=== PATIENT | female | born 1955 | race Caucasian/White ===

== ENCOUNTER → 2016-11-09 | Outpatient (CLI) | payer OTHER ==
--- NOTE | 2016-11-09 12:50 | DIAGNOSTIC IMAGING REPORT ---
LEFT HIP INJECTION UNDER FLUOROSCOPIC GUIDANCE CLINICAL HISTORY: Steroid injection. Degenerative joint disease. PROCEDURE: The risks, benefits, and alternatives to the procedure were discussed with the patient. Written informed consent was obtained. The patient was placed supine on the fluoroscopy table, and a left hip injection was performed under fluoroscopic guidance. The area was prepped and draped in the usual sterile fashion. The skin and soft tissues anesthetized with local 1% lidocaine. The left hip joint was accessed utilizing a 22-gauge needle, and intra-articular positioning was confirmed by injecting a small volume of Optiray 300. The prescribed dosage of 2 cc of betamethasone and 5 cc of 0.5% bupivacaine was then injected into the joint space. The procedure was well tolerated and without immediate complication. The patient left the department in satisfactory condition. FLUOROSCOPY TIME: 7 seconds IMPRESSION: Successful steroid injection of the left hip under fluoroscopic guidance. Electronically signed by: Michael Crowder M.D. 11/09/2016 12:49 PM Dictated Date/Time: 11/09/2016 12:47 PM
== END | disposition home or self-care (01) ==
LOC: C.RADBC 10:51
PROVIDERS: ATTEND Orthopaedic Surgery
DX: M16.12 Unilateral primary osteoarthritis, left hip (principal)

== ENCOUNTER → 2017-03-16 | Outpatient (CLI) | payer OTHER ==
--- NOTE | 2017-03-16 14:55 | DIAGNOSTIC IMAGING REPORT ---
LEFT HIP INJECTION UNDER FLUOROSCOPIC GUIDANCE CLINICAL HISTORY: Steroid injection. Degenerative joint disease. PROCEDURE: The risks, benefits, and alternatives to the procedure were discussed with the patient. Written informed consent was obtained. The patient was placed supine on the fluoroscopy table, and a left hip injection was performed under fluoroscopic guidance. The area was prepped and draped in the usual sterile fashion. The skin and soft tissues anesthetized with local 1% lidocaine. The left hip joint was accessed utilizing a 22-gauge needle, and intra-articular positioning was confirmed by injecting a small volume of Optiray 300. The prescribed dosage of 2 cc of betamethasone and 5 cc of 0.5% bupivacaine was then injected into the joint space. The procedure was well tolerated and without immediate complication. The patient left the department in satisfactory condition. FLUOROSCOPY TIME: 6 seconds IMPRESSION: Successful steroid injection of the left hip under fluoroscopic guidance. Electronically signed by: Michael Crowder M.D. 03/16/2017 2:53 PM Dictated Date/Time: 03/16/2017 2:53 PM
== END | disposition home or self-care (01) ==
LOC: C.RADBC 14:02
PROVIDERS: ATTEND Orthopaedic Surgery
DX: M16.12 Unilateral primary osteoarthritis, left hip (principal)

== ENCOUNTER 2018-11-01 06:30 | Inpatient (IN) ==
--- NOTE | 2018-10-08 15:09 | PAT Medication Instructions ---
Medication Instructions Date of Service October 08, 2018 Home Medications lisinopril 10 mg PO QPM simvastatin 20 mg PO PM omeprazole 20 mg PO DAILY PRN Take morning of surgery With a small sip of water, OTHERWISE NOTHING TO EAT OR DRINK AFTER MIDNIGHT: omeprazole 20 mg PO DAILY PRN (if needed) Take evening before surgery lisinopril 10 mg PO QPM simvastatin 20 mg PO PM Other Notes If you have any questions please call us at [phone] or [phone] or [phone] or [phone]
--- NOTE | 2018-10-09 14:22 | Anesthesiology Consultation ---
Date of Service October 09, 2018 Assessment & Plan (1) Encounter for pre-operative examination: - Neosporin Plus reaction: localized rash but patient states she has had lidocaine alone multiple times without issue. Discussed SAB vs. GA. Chart Review Chart Review: Acceptable Risk for Surgery (pending preop testing (labs, CXR) being done at [facility]) and Patient seen in Pre Admission Testing Teaching & Discussion Pre-Anesthesia Teaching/Discussion Notes: Instructed NPO after midnight before surgery,except medications with 15 cc of water. Medication instructions provided according to the PAT guidelines. History Surgery Operation Date: 11/01/18 08:50 Proposed Procedures p Left Total Knee Arthroplasty - Franky Moreno, Height/Weight Height: 5 ft 4 in Weight: 71.7 kg Allergies Allergy/AdvReac Type Severity Reaction Status Date / Time ciprofloxacin [From Cipro] Allergy Severe RED MAN'S Verified 10/03/18 10:15 SYNDROME bacitracin Allergy Mild Rash Verified 10/03/18 10:15 [From Neosporin Plus] cefaclor [From Ceclor] Allergy Mild Hives Verified 10/03/18 10:15 lidocaine Allergy Mild Rash- *see Verified 10/09/18 14:29 [From Neosporin Plus] comments* neomycin Allergy Mild Rash Verified 10/03/18 10:15 [From Neosporin Plus] polymyxin B Allergy Mild Rash Verified 10/03/18 10:15 [From Neosporin Plus] pramoxine Allergy Mild Rash Verified 10/03/18 10:15 [From Neosporin Plus] Medications Home Medications Medication Instructions Recorded Confirmed Last Taken lisinopril 10 mg PO QPM 11/12/17 10/03/18 11/21/17 simvastatin 20 mg PO PM 11/12/17 10/03/18 11/21/17 omeprazole 20 mg PO DAILY PRN 10/03/18 10/03/18 Unknown Past Medical History Medical History Hyperlipidemia Hypertension Osteoarthritis Exercise / Class Metabolic Activity II 4-5 Yardwork/Stairs/Walk up hill Past Surgical History Surgical History Fusion of spine C3-7 History of section X 2 History of cholecystectomy History of colonoscopy History of hysterectomy History of nasal septoplasty History of tooth extraction Hx of left cataract extraction Hx of right cataract extraction Hx of rotator cuff surgery LEFT Past Anesthesia History No Hx of Anesthesia Complications and No Family Hx of Anesthesia Complications History of PONV No Hx of PONV and Hx of Motion Sickness Social History Smoking Status: Never smoker Do You Dip or Chew Tobacco: No Hx Alcohol Use: Yes Alcohol type: wine alcohol intake frequency: a few times a month Hx Substance Use: No substance use type: does not use Review of Systems Patient denies chest pain, shortness of breath, dyspnea on exertion, cough, wheezing, palpitations. Physical Exam Vital Signs VITALS BP 138/73 P 69 TEMP 98.2 SP02 98%RA RESP 16 PHYSICAL Full neck and c-spine range of motion. Full TMJ range of motion. TMD 4 finger breaths Mallampati Score 2 Dentition: intact, several crowns/implants "all over." Lungs: clear throughout to auscultation Cardiac: regular rate and rhythm, no murmurs noted Spine: normal Carotid arteries: negative bruit Extremities: no edema Testing Laboratory Results Blood Type O Positive 10/09/18 14:30 Antibody Screen NEGATIVE 10/09/18 14:30 Electrocardiogram Date: 11/06/17 Findings: + NSR @ (17)
--- NOTE | 2018-11-01 06:28 | History & Physical Report ---
Date of Service November 01, 2018 Assessment & Plan (1) Osteoarthritis of left knee: We will proceed with a left total knee arthroplasty. Postoperatively she will be placed on aspirin for DVT prophylaxis. She will be kept overnight in the hospital for postoperative medical management. She plans to use an [facility] outpatient physical therapy upon discharge. Present on Admission?: Yes History of Present Illness Primary Care Provider: Kevin Ortega MD Yaquelin is a pleasant 63-year-old female who is been complaining of chronic increasing left knee pain. X-rays and clinical examination have been diagnostic for primary osteoarthritis of the left knee. After failing conservative treatment, she has elected to proceed with a left total knee arthroplasty. Allergies Allergy/AdvReac Type Severity Reaction Status Date / Time ciprofloxacin [From Cipro] Allergy Severe RED MAN'S Verified 10/03/18 10:15 SYNDROME bacitracin Allergy Mild Rash Verified 10/03/18 10:15 [From Neosporin Plus] cefaclor [From Ceclor] Allergy Mild Hives Verified 10/03/18 10:15 lidocaine Allergy Mild Rash- *see Verified 10/09/18 14:29 [From Neosporin Plus] comments* neomycin Allergy Mild Rash Verified 10/03/18 10:15 [From Neosporin Plus] polymyxin B Allergy Mild Rash Verified 10/03/18 10:15 [From Neosporin Plus] pramoxine Allergy Mild Rash Verified 10/03/18 10:15 [From Neosporin Plus] Home Medications Home Medications Medication Instructions Recorded Confirmed Type lisinopril 10 mg PO QPM 11/12/17 10/03/18 History simvastatin 20 mg PO PM 11/12/17 10/03/18 History omeprazole 20 mg PO DAILY PRN 10/03/18 10/03/18 History Past Med/Surg History Medical History Hyperlipidemia Hypertension Osteoarthritis Surgical History Fusion of spine C3-7 History of section X 2 History of cholecystectomy History of colonoscopy History of hysterectomy History of nasal septoplasty History of tooth extraction Hx of left cataract extraction Hx of right cataract extraction Hx of rotator cuff surgery LEFT Social History Preferred Language: [place] Verde[place] Communication Ability: Effective Therapist Asst Required: No Beliefs That Will Affect Care: None Current Living Situation: Spouse Feels Safe at Home: Yes Smoking Status: Never smoker Second Hand Exposure: No ; Hx Alcohol Use: Yes Alcohol type: wine Hx Substance Use: No
[~2018-11-01 06:30] MED LIST: ACETAMINOPHEN 500 MG TAB PO SCH; BUPIVACAINE 0.5 % 5 MG/1 ML PF 10ML VIAL ONE; CEFAZOLIN 1000MG 1,000 MG/7.5 ML SYR IV SCH; CEFAZOLIN: ALLERGY NOTED TO ORDERED MEDICATION SCH; EPINEPHrine INJ 1 MG/ML AMP ONE; FAMOTIDINE 20 MG TAB PO SCH; GABAPENTIN 600 MG DOSE PO SCH; LR 500ML BOLUS IV SCH; LR 60ML/HR IV SCH; ROPIVACAINE 0.5% 5 MG/ML 30 ML VIAL ONE; ROPIVACAINE 0.5% HCL/PF 150 MG, BUPIVACAINE 0.5% MPF 30 ML, EPINEPHrine 30MG/30ML (OR U... INSTIL SCH; TRANEXAMIC ACID 1,000 MG **IV Intra-op IV SCH; TRANEXAMIC ACID 1,000 MG **IV Pre-op IV SCH
--- NOTE | 2018-11-01 06:36 | History & Physical Bridge Note ---
Date of Service November 01, 2018 History & Physical Bridge Note I have examined the patient, reviewed the History & Physical and in the interval since the performance of the History & Physical I have noted the following changes of clinical significance: no changes noted
[2018-11-01] MEDS ORDERED: ORTHO JOINT ANESTHETIC ONE (07:09)
[2018-11-01] MEDS ORDERED: CEFAZOLIN 1,000 MG/7.5 ML IV PUSH IV ONE (07:14)
[2018-11-01] MEDS ORDERED: CEFAZOLIN 1000MG 1,000 MG/7.5 ML SYR IV ONE (07:16)
[2018-11-01] MEDS ORDERED: MIDAZOLAM HCL 1 MG/ML 2ML VIAL ONE ×2 (07:25→08:39)
[2018-11-01] MEDS ORDERED: fentaNYL citrate 100 MCG/2 ML VIAL ONE (07:25)
[2018-11-01] MEDS ORDERED: ePHEDrine sulfate 50 MG/ML AMP IV PRN (07:38)
[2018-11-01] MEDS ORDERED: fentaNYL citrate 100 MCG/2 ML VIAL IV PRN (07:38)
[2018-11-01] MEDS ORDERED: SCOPOLAMINE 1.5 MG TDSY TD ONE (07:38)
[2018-11-01] MEDS ORDERED: ATROPINE SULFATE 0.1 MG/ML 10ML SYR IV PRN (07:38)
[2018-11-01] MEDS ORDERED: ONDANSETRON INJ 2 MG/ML 2 ML VIAL IV PRN ×2 (07:38→11:07)
[2018-11-01] MEDS ORDERED: BUPIVACAINE 0.5 % 5 MG/1 ML PF 10ML VIAL ONE (07:54)
[2018-11-01] MEDS ORDERED: ONDANSETRON INJ 2 MG/ML 2 ML VIAL ONE (09:22)
--- NOTE | 2018-11-01 09:59 | Operative Report ---
Post Operative Report Pre & Post Diagnosis Operation Date: 11/01/18 08:50 Pre-Op Diagnosis: Left Knee Degenerative Joint Disease Post-Op Diagnosis: Left Knee Degenerative Joint Disease Procedure Operation Date: 11/01/18 08:50 Actual Procedures p Left Total Knee Arthroplasty(Left) - Franky Moreno DO Surgeon Franky Moreno DO Aircraft Cylinder Mechanic Franky Lynne PAC Estimated Blood Loss 20 Findings Consistent with Post-Op Diagnosis Specimens Left femoral and tibial bone Complications none Disposition Disposition: Recovery Room Indications 3-year-old female who presented my office with chronic increasing left knee pain. X-rays and clinical examination were diagnostic for primary ost eoarthritis of the left knee. After failing conservative treatment, she elected to proceed with a left total knee arthroplasty. Description of Procedure Implants used: I used a Biomet Barreguard total knee arthroplasty system with a size 65 femur, 67 tibia, 28 patella, and a size 10 PS polyethylene bearing. All components were cemented in place with Palacos G cement. The patient arrived [facility] for the above procedure. There were seen in the preoperative holding area and the operative extremity was identified and signed. There were given a preoperative antibiotic, a spinal anesthetic and an adductor nerve block. There were taken back to the operating room and laid on the table in supine position. There were given basic sedation. The operative knee was then prepped and draped in sterile fashion. A timeout was done, and the patient and the operative extremity was properly identified. A midline incision was made directly over the patella. Dissection was taken down to the extensor mechanism. A subvastus arthrotomy was used. The medial retinaculum was released and the fat pad was mostly left intact. The knee was flexed and the ACL, PCL, and meniscus were removed. A drill was sent down the center of the femoral canal followed by an intramedullary clark. Off that clark a distal femoral cutting block was placed. 9 mm was resected off the distal femur at 5 of valgus. A posterior referencing AP sizing guide was then placed on the distal femur. The femur measured to be a size 65. 2 drill holes were placed in 3 of external rotation. A 4-in-1 cutting block was then impacted into place. Anterior posterior and chamfer cuts were then made. The posterior stabilizing box guide was then impacted into place and the box was resected for the posterior stabilizing component. The proximal tibia was then exposed. A drill was sent down the center of the tibial canal followed by an intramedullary clark. Off that clark a proximal tibial resection guide was placed. The proximal tibia was then resected. The tibia measured to be a size 67. The tibial plate was then placed in the appropriate rotation and the tibia was punched. The posterior aspect of the knee was then opened up and any additional meniscus fragments and osteophytes were removed. Trial components were then placed. I used a size 10 PS polyethylene insert. The knee was brought through a full range of motion and felt to be stable. The patella was then everted and 8 mm was resected off the posterior aspect of the patella. The patella measured to be a size 28. 3 peg holes were then drilled. A trial patella was placed. The knee was once again brought through a full range of motion and felt to be stable. Trial components were then removed. The surrounding soft tissues were injected with 100 cc of an orthopedic pain control cocktail. All components were then cemented into place with Palacos G cement. The final polyethylene insert was then snapped into place and the anterior bar was locked. Once cement was dry the tourniquet was deflated. Hemostasis was obtained. A dilute betadyne lavage was then done for 3 minutes. The joint was then irrigated with normal saline solution. The subvastus arthrotomy was then closed with #1 Vicryl suture. The skin was closed with 2-0 Vicryl, 3-0V lock suture, and ottoniel. A soft compressive dressing was placed. The patient was then transferred to a hospital bed and taken to the postanesthesia care unit in stable condition. They tolerated the procedure well. I attest to the content of the Intraoperative Record and any orders documented therein. Any exceptions are noted below.
--- NOTE | 2018-11-01 10:41 | XRay Report ---
TWO VIEWS LEFT KNEE CLINICAL HISTORY: Postoperative examination. FINDINGS: AP and crosstable lateral portable views of the left knee are obtained. A left knee arthrop lasty is in near anatomic alignment. There has been undersurface remodeling of the patella. No acute fracture is seen. There are expected postoperative changes around the knee including skin clips, sof t tissue edema, and subcutaneous gas. IMPRESSION: Expected postoperative changes status post left knee arthroplasty. No acute fracture is s een. Electronically signed by: Michael Crowder M.D. 11/01/2018 10:40 AM
--- NOTE | 2018-11-01 11:05 | Anesthesiology Progress Note ---
Date of Service November 01, 2018 Anesthesia Post Procedure Vital Signs Vital Signs: Temp Pulse Pulse Resp BP BP Pulse Ox 11/01/18 10:55 68 22 166/88 H 99 11/01/18 10:45 97.2 F L 60 13 148/81 H 100 11/01/18 10:35 58 L 15 156/89 H 100 11/01/18 10:25 72 17 157/85 H 99 11/01/18 10:17 96.8 F L 68 18 140/83 98 11/01/18 06:59 97.9 F 71 20 168/85 H 97 Transfer of Care Handoff Completed per policy Notes Mental Status: alert / awake / arousable and participated in evaluation Patient Amnestic to Procedure: Yes Nausea / Vomiting: adequately controlled Pain: adequately controlled Airway Patency, RR, SpO2: stable & adequate BP & HR: stable & adequate Hydration State: stable & adequate Neuraxial Anesthesia: was administered and sensory block is resolving Anesthetic Complications: no major complications apparent and Pt Satisfied with anesthetic care
[2018-11-01] MEDS ORDERED: NALOXONE HCL 0.4 MG/1 ML VIAL/CARP IV PRN (11:07)
[2018-11-01] MEDS ORDERED: MAGNESIUM HYDROXIDE SUSP 30 ML UDC PO PRN (11:07)
[2018-11-01] MEDS ORDERED: OXYCODONE HCL IR 5 MG TAB (IMMEDIATE RELEASE) PO PRN (11:07)
[2018-11-01] MEDS ORDERED: METOCLOPRAMIDE HCL INJ 5 MG/ML 2 ML VIAL IV PRN (11:07)
[2018-11-01] MEDS ORDERED: PANTOprazole 40 MG TAB PO PRN (11:07)
[2018-11-01] MEDS ORDERED: HYDROmorphone INJ 0.5 MG/0.5 ML SYR IV PRN (11:07)
[2018-11-01] MEDS ORDERED: BISACODYL 10 MG SUPP PR PRN (11:07)
[2018-11-01 11:53] LABS: Est GFR (African American) 90.3; Est GFR (Non-African American) 77.9
[2018-11-01] MEDS ORDERED: SODIUM CHLORIDE 0.9% 1000ML 1,000 ML IV SCH (12:00)
[2018-11-01] MEDS: ACETAMINOPHEN 500 MG TAB PO SCH ×2 (14:06→21:02)
[2018-11-01] MEDS: KETOROLAC 30 MG/ML VIAL IV SCH ×3 (14:06→23:52)
[2018-11-01] MEDS ORDERED: CHECK SCOPOLAMINE PATCH PLACEMENT SCH (16:00)
[2018-11-01] MEDS: CEFAZOLIN 2000MG 2,000 MG/15 ML SYR IV SCH ×2 (17:58→23:51)
[2018-11-01] MEDS ORDERED: SENNA 8.6 MG TAB PO SCH (21:00)
[2018-11-01] MEDS ORDERED: LISINOPRIL 10 MG TAB PO SCH (21:00)
[2018-11-01] MEDS ORDERED: SIMVASTATIN 20 MG TAB PO SCH (21:00)
[2018-11-01] MEDS: DOCUSATE SODIUM 100 MG CAP PO SCH (21:00)
[2018-11-01] MEDS: ASPIRIN 81 MG ECTAB PO SCH (21:00)
[2018-11-02] MEDS: KETOROLAC 30 MG/ML VIAL IV SCH ×2 (05:07→10:22)
[2018-11-02] MEDS: ACETAMINOPHEN 500 MG TAB PO SCH (05:07)
[2018-11-02 06:02] LABS: Hematocrit (blood only) 36.8 % (37-47); Hemoglobin 12.1 g/dL (12.0-16.0); Mean Corpuscular Hgb Conc 32.9 g/dL (32-36); Mean Corpuscular Volume 86.4 fL (80-100); Mean Platelet Volume 9.7 fL (7.4-10.4); Platelet Count 243 K/uL (130-400); RDW Coefficient of Variation 13.3 % (11.5-14.5); Red Blood Count 4.26 M/uL (4.2-5.4); White Blood Count 14.67 K/uL (4.8-10.8)
[2018-11-02 06:32] LABS: BUN Creatinine Ratio 19.4 (10-20); Blood Urea Nitrogen 21 mg/dl (7-18); Calcium 8.8 mg/dl (8.5-10.1); Carbon Dioxide 31 mmol/L (21-32); Chloride 106 mmol/L (98-107); Est GFR (African American) 64.3; Est GFR (Non-African American) 55.4; Glucose 113 mg/dl (70-99); Potassium 3.9 mmol/L (3.5-5.1); Sodium 142 mmol/L (136-145)
[2018-11-02] MEDS: DOCUSATE SODIUM 100 MG CAP PO SCH (08:31)
[2018-11-02] MEDS: ASPIRIN 81 MG ECTAB PO SCH (08:31)
--- NOTE | 2018-11-02 08:49 | Orthopedic Progress Note ---
Date of Service November 02, 2018 Assessment & Plan (1) Osteoarthritis of left knee: Overall she is doing very well. She is not having much pain in the left knee. She is happy with her progress. She is on aspirin for DVT prophylaxis. She will be seen by physical therapy today for ambulation and range of motion exercises. She can be discharged home later this morning. She will get outpatient physical therapy. She will follow-up with orthopedics in 2 weeks. Present on Admission?: Yes Subjective Yaquelin was seen and examined at bedside this morning. Overall she is doing very well. She is not having any pain in the left knee. She is already been up and ambulating around the nurses station. She has no complaints. Physical Exam Musculoskeletal: On physical examination of the left knee, the dressing is clean and dry. Legs out in full extension. She is active dorsiflexion and plantarflexion of her left ankle. Sensations intact. Results & Data Vital Signs (Past 12 Hours) Vital Signs Temp Pulse Resp BP BP Pulse Ox 11/02/18 07:22 36.8 C 67 16 130/67 96 11/02/18 04:00 36.6 C 65 17 124/65 93 11/01/18 23:28 36.6 C 77 18 121/65 96 Laboratory Results H & H 11/02/18 Range/Units 05:14 Hgb 12.1 (12.0-16.0) g/dL Hct 36.8 L (37-47) % Diagnostic Findings Postoperative x-rays of the left knee show the prosthesis to be in anatomic alignment without any evidence of fracture, dislocation, or loosening. PG Care Time/CCT Total # of Minutes Spent Total Time Spent with Patient: Total time spent is greater than 50% in coordination of care (as documented) at patient's floor/unit and/or counseling patient:
--- NOTE | 2018-11-02 08:50 | Discharge Summary ---
Date of Service November 02, 2018 Admission HPI Per Admitting Provider Yaquelin is a pleasant 63-year-old female who is been complaining of chronic increasing left knee pain. X-rays and clinical examination have been diagnostic for primary osteoarthritis of the left knee. After failing conservative treatment, she has elected to proceed with a left total knee arthroplasty. Principal Diagnosis Left total knee arthroplasty Discharge Data Allergies Allergy/AdvReac Type Severity Reaction Status Date / Time ciprofloxacin [From Cipro] Allergy Severe RED MAN'S Verified 11/01/18 06:57 SYNDROME bacitracin Allergy Mild Rash Verified 11/01/18 06:57 [From Neosporin Plus] cefaclor [From Ceclor] Allergy Mild Hives Verified 11/01/18 06:57 lidocaine Allergy Mild Rash- *see Verified 11/01/18 06:57 [From Neosporin Plus] comments* neomycin Allergy Mild Rash Verified 11/01/18 06:57 [From Neosporin Plus] polymyxin B Allergy Mild Rash Verified 11/01/18 06:57 [From Neosporin Plus] pramoxine Allergy Mild Rash Verified 11/01/18 06:57 [From Neosporin Plus] Consultations 11/01/18 11:07 Consult Case Management - Discharge Planning Routine Procedures Performed Operation Date: 11/01/18 08:50 Actual Procedures p Left Total Knee Arthroplasty(Left) - Franky Moreno DO Ordered Studies 11/01/18 05:00 US - OR guided needle placemen Routine Hospital Course (1) Osteoarthritis of left knee: On November 01, 2018 Yaquelin arrived at [facility] and underwent a left total knee arthroplasty without complication. She had a spinal anesthetic and a left adductor nerve block. Postoperatively she was started on aspirin for DVT prophylaxis and was discharged to general orthopedic floors. Her hospital course was uneventful. On postop day #1 her H&H was stable and her pain was well controlled. She was able to ambulate well with physical therapy. She was then discharged home with outpatient physical therapy. She will follow- up with orthopedics in 2 weeks. Total Time Total Time Spent Total Time Spent (In Minutes): 20 Discharge Plan Discharge Items Patient Disposition: Home - Self-Care Reason For Visit: LEFT KNEE DEGENERATIVE JOINT DISEASE Discharge Diagnosis: Left total knee arthroplasty Activity: As commented below Non-emergency contact: Surgeon Call non-emergency contact if: your wound has increased redness and your wound has increased drainage Follow-up/Referrals: Kevin Ortega MD [Primary Care Provider] - Diet: Regular Addtl Attending Provider Instructions: Activity and Therapy Recommendations: * If you are using [facility] then therapy will be provided at your home until they feel you have accomplished all of your goals. * If you are using [facility] then Physical Therapy will be provided until they feel you are ready to start Outpatient Physical Therapy. * If you are not using home therapy then Outpatient Physical Therapy should start about 3-5 days from your day of surgery. Therapy will last about 6-10 weeks * It is important not to put a pillow under your knee when you are relaxing or sleeping. It is just as important to make sure you are getting your knee perfectly straight as it is to regain your knee bend. * You were shown a series of exercises in the hospital. Do these exercises three times each day including the exercises you were shown in physical therapy. * Get up and walk several times each day. For the first four weeks, try not to stand or walk for more than one hour at a time. If you do stand or walk for more than one hour, you will not hurt anything, but your leg will likely swell. * As you feel comfortable, you may change from the walker or crutches to a cane and then to independent walking. Medications: * Narcotic You will likely be sent home from the hospital with a prescription for the narcotic pain medication that worked best throughout your stay. * Aspirin Most patients will be required to take Aspirin 81mg twice a day for 6 weeks after surgery. This is obtained [id number] and a prescription is not necessary. * Other medications may be prescribed for specific circumstances. If you have any questions, please call the office at . * Resume previous home medications unless otherwise instructed TEDs/Elastic Stockings: The white elastic stockings help limit swelling and prevent blood clots from forming in your legs.~ The more you wear them, the more they work. Wear them for six weeks. Dressing Care: If the incision is not draining then you may leave the ottoniel open to air. If there is a little bit of drainage or if the ottoniel are getting stuck on your clothing then cover the incision with a dry dressing. The ottoniel will be removed at your 2 week follow-up appointment. Showering: You may shower 5 days from the day of surgery. Let the soapy shower water run over the ottoniel and pat them dry. Do not scrub or soak the incision. Things To Watch For: * Drainage from the incision site that occurs more than one week after your surgery. * Increased redness at the incision site. * Fever above 102 degrees Fahrenheit. * Unusual chest pain or shortness of breath. * Call [facility] at with any of the above problems Follow-Up Visit: Follow-up with Dr. Moreno 2-3 weeks after your day of surgery. An appointment was probably scheduled when you signed-up for surgery in the office. If you have any questions call Office Instructions: More detailed instructions as well as Frequently Asked Questions were provided in a folder by our office when you signed-up for surgery. Please review these instructions when you get home. If you have any further questions or concerns, please feel free to call the office at [phone] Pending Studies at Discharge: No Stand-Alone Forms: My [facility] Medications and DC Order Prescriptions: New oxycodone 5 mg Tablet 5 mg PO Q4H PRN (Reason: pain) Qty: 40 RF: 0 aspirin [Ecotrin Low Strength] 81 mg Tablet,Delayed Release (Dr/Ec) 81 mg PO BID Qty: 84 RF: 0 Continued simvastatin 20 mg Tablet 20 mg PO PM RF: 0 lisinopril 10 mg Tablet 10 mg PO QPM RF: 0 omeprazole 20 mg Capsule,Delayed Release(Dr/Ec) 20 mg PO DAILY PRN (Reason: GERD) RF: 0 Discharge Orders: Discharge Order (Routine); Ordered 11/02/18 Ordered By: Franky Moreno Admission Data Admit Date/Time: 11/01/18 10:17 Attending Provider: Franky Moreno Admit Provider: Franky Moreno Primary Care Provider: Kevin Ortega
[2018-11-02] MEDS ORDERED: MULTIVITAMIN TAB PO SCH (09:00)
== END 2018-11-02 10:40 | disposition home or self-care (01) | DRG 470 ==
LOC: ASU 06:30 → 3E 10:17
DX: Z79.899 Other long term (current) drug therapy; M17.12 Unilateral primary osteoarthritis, left knee; K21.9 Gastro-esophageal reflux disease without esophagitis; I10 Essential (primary) hypertension; E78.5 Hyperlipidemia, unspecified